=== PATIENT | male | born 1960 | race American Indian/Alaskan Native ===

== ENCOUNTER 2020-06-28 03:10 | Emergency (ER) | payer SELFPAY ==
--- NOTE | 2020-06-28 03:25 | EDM.PDOC ---
ED HPI GENERAL MEDICAL PROBLEM - General Stated Complaint: INTOXICATED; SOB Time Seen by Provider: 06/28/20 03:20 Source of Information: Reports: Patient History Limitations: Reports: Intoxication - History of Present Illness INITIAL COMMENTS - FREE TEXT/NARRATIVE: 59-year-old male who earlier tonight was at a bar attending awake of a recently friend with multiple other people and apparently he drank alcohol heavily. Patient remembers is that he doesn't really remember much after this and cannot relate the history to me but apparently he went or was taken home where he lives by himself and apparently fell on his floor and was unable to get up. The friend that was with him that brought him home apparently was unable to help him get up and he also noted that there was some bleeding coming from a scrape on his right knee and the patient was per altered and his level responsiveness and therefore the friend called 911 and EMS arrived and brought patient here for evaluation. The patient tells me that he has no pain. And ask again low pain was he rated it as a 0/10. He cannot give me an accounting of what happened tonight. He does admit to drinking alcohol heavily. No reported vomiting. He does have some wheezing that he has a history of asthma and he has been using his inhaler. He reports that it any better or worse than normal for him. It is really unknown if he has any other injuries from this fall. The only evidence of trauma that I can see is on his anterior right knee where he has an abrasion that had some bleeding but it has been controlled with direct pressure and has a dressing placed over it. There are no other associated signs or symptoms. There are no other modifying factors. Onset: Today Duration: Constant Location: Reports: Upper Extremity, Right (Right knee) Quality: Reports: Other (Patient denies any pain.) Improves with: Reports: None Worsens with: Reports: None Context: Reports: Other (As above.) Associated Symptoms: Reports: Confusion, Other (Wheezing. Intoxicated.) Treatments EXECUTIVE VP: Reports: Other (see below) (Nothing.) - Related Data Allergies Allergy/AdvReac Type Severity Reaction Status Date / Time fall and spring seasonal Allergy Asthma Uncoded 06/28/20 03:55 Home Meds: Home Meds Azithromycin [Zithromax] 1 dose PO DAILY 5 Days #6 tab 06/28/20 [Rx] Fluticasone Propionate [Flonase] 2 spray JESSICA BID #1 bottle 06/28/20 [Rx] Past Medical History HEENT History: Reports: Impaired Vision (Worse colossus) Respiratory History: Reports: Asthma Other Gastrointestinal History: umbilical hernia - protruding Psychiatric History: Reports: Addiction (Alcohol abuse) Endocrine/Metabolic History: Reports: Obesity/BMI 30+ - Past Surgical History HEENT Surgical History: Reports: Cataract Surgery Social & Family History - Tobacco Use Tobacco Use Status *Q: Unknown Ever Used Tobacco (Nonsmoker.) - Alcohol Use Alcohol Use History: Yes Alcohol Use Frequency: Binges (Heavy drinking tonight.) - Living Situation & Occupation Living situation: Reports: Alone ED ROS GENERAL - Review of Systems Review Of Systems: See Below Constitutional: Reports: No Symptoms HEENT: Reports: No Symptoms Respiratory: Reports: Wheezing, Cough Cardiovascular: Reports: No Symptoms Endocrine: Reports: No Symptoms GI/Abdominal: Denies: Abdominal Pain, Nausea, Vomiting Musculoskeletal: Reports: No Symptoms Skin: Reports: Wound (Abrasion on right anterior knee) Neurological: Reports: Confusion Hematologic/Lymphatic: Reports: No Symptoms Immunologic: Reports: Other (Unknown when his last tetanus immunization was.) - Physical Exam Exam: See Below Exam Limited By: No Limitations General Appearance: Alert, Obese (Morbidly obese) Eye Exam: Bilateral Eye: EOMI (Lateral gaze nystagmus at less than 45), Normal Inspection Ears: Normal External Exam, Hearing Grossly Normal Nose: Normal Inspection, Normal Mucosa, No Blood Throat/Mouth: Normal Inspection, Normal Lips, Normal Voice, No Airway Compromise, Other (Strong odor of alcohol on his breath) Head Exam: Atraumatic, Normocephalic Neck: Normal Inspection, Non-Tender Respiratory/Chest: No Respiratory Distress, Lungs Clear, Normal Breath Sounds (Some noises at end expiration that appear to be upper airway noises.), No Accessory Muscle Use, Chest Non-Tender, Other (Good air movement) Cardiovascular: Normal Peripheral Pulses, Regular Rate, Rhythm, No Murmur GI/Abdominal: Normal Bowel Sounds, Soft, Non-Tender, Other (Protuberant) Neuro Exam (Abbreviated): Alert, CN II-XII Intact, No Motor/Sensory Deficits, Slow to Respond Extremities: Normal Range of Motion, No Pedal Edema, Normal Capillary Refill Skin Exam: Warm, Dry, Normal Color, Wound/Incision (Abrasion on his right anterior knee) Course - Vital Signs Last Recorded V/S: Last Vital Signs Temp 36.4 C 06/28/20 03:10 Pulse 84 06/28/20 05:00 Resp 16 06/28/20 05:00 BP 136/75 06/28/20 05:00 Pulse Ox 96 06/28/20 05:00 - Orders/Labs/Meds Orders: Active Orders 24 hr Category Date Time Status Cervical Spine wo Cont [CT] Stat Exams 06/28/20 03:37 Taken Chest 1V Frontal [CR] Stat Exams 06/28/20 04:04 Taken Head wo Cont [CT] Stat Exams 06/28/20 03:37 Taken Knee 1V or 2V Rt [CR] Stat Exams 06/28/20 03:37 Taken Labs: Laboratory Tests 06/28/20 06/28/20 06/28/20 Range/Units 03:50 03:50 03:55 WBC 9.7 (4.5-12.0) X10-3/uL RBC 4.68 (4.30-5.75) x10(6)uL Hgb 13.1 L (13.5-17.8) g/dL Hct 40.0 (30.0-51.3) % MCV 85.4 (80-96) fL MCH 28.0 (27.7-33.6) pg MCHC 32.8 (32.2-35.4) g/dL RDW 13.3 (11.5-15.5) % Plt Count 287 (125-369) X10(3)uL MPV 7.7 (7.4-10.4) fL Neut % (Auto) 72.0 (46-82) % Lymph % (Auto) 21.3 (13-37) % Divide % (Auto) 3.0 L (4-12) % Eos % (Auto) 3 (1.0-5.0) % Baso % (Auto) 1 (0-2) % Neut # (Auto) 7.0 (1.6-8.3) # Lymph # (Auto) 2.1 (0.6-5.0) # Divide # (Auto) 0.3 (0.0-1.3) # Eos # (Auto) 0.3 (0.0-0.8) # Baso # (Auto) 0.0 (0.0-0.2) # Sodium (135-145) mmol/L Potassium (3.5-5.3) mmol/L Chloride (100-110) mmol/L Carbon Dioxide (21-32) mmol/L BUN (7-18) mg/dL Creatinine (0.70-1.30) mg/dL Est Cr Clr Drug Dosing Estimated GFR (MDRD) (>60) BUN/Creatinine Ratio (9-20) Glucose (80-116) mg/dL Calcium (8.6-10.2) mg/dL Total Bilirubin (0.1-1.3) mg/dL AST (5-25) IU/L ALT (12-36) U/L Alkaline Phosphatase (56-112) IU/L Total Protein (6.0-8.0) g/dL Albumin (3.5-5.2) g/dL Globulin g/dL Albumin/Globulin Ratio Urine Color Yellow (YELLOW) Urine Appearance Clear (CLEAR) Urine pH 5.0 (5.0-6.5) Ur Specific Rembert 1.015 (1.010-1.025) Urine Protein Negative (NEGATIVE) mg/dL Urine Glucose (UA) Normal (NORMAL) mg/dL Urine Ketones Negative (NEGATIVE) mg/dL Urine Occult Blood Negative (NEGATIVE) Urine Nitrite Negative (NEGATIVE) Urine Bilirubin Negative (NEGATIVE) Urine Urobilinogen Normal (NEGATIVE) mg/dL Ur Leukocyte Esterase Negative (NEGATIVE) Urine RBC 0-5 (0-5) Urine WBC 0-5 (0-5) Ur Squamous Epith Cells Occasional (NS,R,O) Urine Bacteria Few H (NS) Urine Opiates Screen Negative (NEGATIVE) Ur Oxycodone Screen Negative (NEGATIVE) Ur Propoxyphene Screen Negative (NEGATIVE) Ur Barbituates Screen Negative (NEGATIVE) Ur Tricyclics Screen Negative (NEGATIVE) Ur Phencyclidine Scrn Negative (NEGATIVE) Ur Amphetamine Screen Negative (NEGATIVE) Urine MDMA Screen Negative (NEGATIVE) U Benzodiazepines Scrn Negative (NEGATIVE) U Cocaine Metab Screen Negative (NEGATIVE) U Marijuana (THC) Screen Negative (NEGATIVE) Ethyl Alcohol (<0.03) % 06/28/20 06/28/20 Range/Units 03:55 03:55 WBC (4.5-12.0) X10-3/uL RBC (4.30-5.75) x10(6)uL Hgb (13.5-17.8) g/dL Hct (30.0-51.3) % MCV (80-96) fL MCH (27.7-33.6) pg MCHC (32.2-35.4) g/dL RDW (11.5-15.5) % Plt Count (125-369) X10(3)uL MPV (7.4-10.4) fL Neut % (Auto) (46-82) % Lymph % (Auto) (13-37) % Divide % (Auto) (4-12) % Eos % (Auto) (1.0-5.0) % Baso % (Auto) (0-2) % Neut # (Auto) (1.6-8.3) # Lymph # (Auto) (0.6-5.0) # Divide # (Auto) (0.0-1.3) # Eos # (Auto) (0.0-0.8) # Baso # (Auto) (0.0-0.2) # Sodium 133 L (135-145) mmol/L Potassium 4.0 (3.5-5.3) mmol/L Chloride 96 L (100-110) mmol/L Carbon Dioxide 24 (21-32) mmol/L BUN 14 (7-18) mg/dL Creatinine 0.9 (0.70-1.30) mg/dL Est Cr Clr Drug Dosing TNP Estimated GFR (MDRD) > 60 (>60) BUN/Creatinine Ratio 15.6 (9-20) Glucose 103 (80-116) mg/dL Calcium 8.4 L (8.6-10.2) mg/dL Total Bilirubin 0.6 (0.1-1.3) mg/dL AST 29 H (5-25) IU/L ALT 34 (12-36) U/L Alkaline Phosphatase 99 (56-112) IU/L Total Protein 7.7 (6.0-8.0) g/dL Albumin 3.3 L (3.5-5.2) g/dL Globulin 4.4 g/dL Albumin/Globulin Ratio 0.8 Urine Color (YELLOW) Urine Appearance (CLEAR) Urine pH (5.0-6.5) Ur Specific Rembert (1.010-1.025) Urine Protein (NEGATIVE) mg/dL Urine Glucose (UA) (NORMAL) mg/dL Urine Ketones (NEGATIVE) mg/dL Urine Occult Blood (NEGATIVE) Urine Nitrite (NEGATIVE) Urine Bilirubin (NEGATIVE) Urine Urobilinogen (NEGATIVE) mg/dL Ur Leukocyte Esterase (NEGATIVE) Urine RBC (0-5) Urine WBC (0-5) Ur Squamous Epith Cells (NS,R,O) Urine Bacteria (NS) Urine Opiates Screen (NEGATIVE) Ur Oxycodone Screen (NEGATIVE) Ur Propoxyphene Screen (NEGATIVE) Ur Barbituates Screen (NEGATIVE) Ur Tricyclics Screen (NEGATIVE) Ur Phencyclidine Scrn (NEGATIVE) Ur Amphetamine Screen (NEGATIVE) Urine MDMA Screen (NEGATIVE) U Benzodiazepines Scrn (NEGATIVE) U Cocaine Metab Screen (NEGATIVE) U Marijuana (THC) Screen (NEGATIVE) Ethyl Alcohol 0.30 H* (<0.03) % Meds: Medications Discontinued Medications Generic Name Dose Route Start Last Admin Trade Name Freq PRN Reason Stop Dose Admin Diphtheria/Tetanus/Acell Pertussis 0.5 ml 06/28/20 03:40 06/28/20 03:59 Boostrix IM 06/28/20 03:41 0.5 ml .ONCE ONE Administration - Radiology Interpretation Free Text/Narrative:: CT scan of head showed mild scalp swelling in the right frontal region but no fracture. There is a normal CT appearance of the brain for the patient's age and there is bilateral sphenoid sinusitis and evidence of chronic sinusitis in the other sinuses. This was per the radiologist at [facility] CT scan of the cervical spine showed no sign of fracture or subluxation there was degenerative disc disease at all levels. This was per the radiologist at [facility] Chest x-ray showed no acute disease per the radiologist at [facility]. X-ray of the right knee showed no acute osseous abnormality was a moderate suprapatellar joint effusion and evidence of DJD. This was per the radiologist at [facility] - Re-Assessments/Exams Free Text/Narrative Re-Assessment/Exam: 06/28/20 05:12: Patient has remained vitally stable. He was asleep when I came in to reevaluate him but he awakened easily. His blood tests are reassuringly normal except for a blood alcohol of 300 mg/dL. His x-rays show no acute abnormalities and the CT scans of his head and neck were essentially negative as well except for evidence of sinus disease with possible acute sinusitis. The patient is conversant but he is too intoxicated to walk and we will need to watch him for a longer period of time. Does report he has multiple family members in town and he is quite sure that one of these will be able to help him later when he is appropriate for discharge. Plan will be to continue to watch him and when he is able to ambulate with minimal assistance, he will be able to be discharged. I will be placed the patient on Zithromax for 5 day course as well as placing the patient on Flonase nasal spray. This is to treat his sinusitis. The plan for now will be to continue to observe him he remains vitally neurologically stable. 06/28/20 08:50: Patient is more awake and alert. He is ambulatory without any problems. A family member is coming to pick the patient up now. He appears to be stable and appropriate for discharge at this point. Departure - Departure Time of Disposition: 08:55 Disposition: Home, Self-Care 01 Condition: Good Clinical Impression: Abrasion, right knee, initial encounter, Contusion of right knee, initial encounter Acute alcohol intoxication Qualifiers: Complication of substance-induced condition: uncomplicated Qualified Code(s): F10.920 - Alcohol use, unspecified with intoxication, uncomplicated Fall from standing Qualifiers: Encounter type: initial encounter Qualified Code(s): W19.XXXA - Unspecified fall, initial encounter Head contusion Qualifiers: Encounter type: initial encounter Contusion of head detail: other part of head Qualified Code(s): S00.83XA - Contusion of other part of head, initial encounter Sinusitis, acute Qualifiers: Sinusitis location: pansinusitis Recurrence: not specified as recurrent Qualified Code(s): J01.40 - Acute pansinusitis, unspecified - Discharge Information Prescriptions: Fluticasone Propionate [Flonase] 2 spray JESSICA BID #1 bottle Azithromycin [Zithromax] 1 dose PO DAILY 5 Days #6 tab Instructions: Alcohol Intoxication, [id number], Contusion, [id number], Abrasion, [id number] Referrals: PCP,None [Primary Care Provider] - Forms: ED Department Discharge Additional Instructions: Your blood alcohol was 300 mg/dL. It is greater than 4 times the legal limit. You were heavily intoxicated and that caused due to fall at your home. There was no evidence of any severe injury. The x-rays of your right knee showed evidence of bruising. The x-ray of your chest was normal. In the CT scans of your head and neck and no fractures. You do have evidence of a sinus infection and I am placing you on antibiotics (Zithromax) and a Flonase nasal spray treat this. I strongly advise you to stop drinking alcohol and seek help in doing this. Follow up with your primary doctor. Back to the emergency department for vomiting, trouble breathing or any other concerning sign or symptom. Sepsis Event Note (ED) - Focused Exam Vital Signs: Vital Signs Temp Pulse Resp BP Pulse Ox 06/28/20 05:00 84 16 136/75 96 06/28/20 04:00 88 18 121/52 L 98 06/28/20 03:30 91 16 122/71 96 06/28/20 03:15 94 16 121/61 98 06/28/20 03:10 36.4 C - My Orders Last 24 Hours: My Active Orders 06/28/20 03:37 Cervical Spine wo Cont [CT] Stat Head wo Cont [CT] Stat Knee 1V or 2V Rt [CR] Stat 06/28/20 04:04 Chest 1V Frontal [CR] Stat - Assessment/Plan Last 24 Hours: My Active Orders 06/28/20 03:37 Cervical Spine wo Cont [CT] Stat Head wo Cont [CT] Stat Knee 1V or 2V Rt [CR] Stat 06/28/20 04:04 Chest 1V Frontal [CR] Stat
[2020-06-28] MEDS ORDERED: Diphtheria,Pertussis(Acell),Tetanus Vaccine 0.5 ML Syringe IM ONE (03:40)
[2020-06-28 06:41] VITALS: BP 136/75; PULSE 84
== END 2020-06-28 08:55 | disposition home or self-care (01) ==
LOC: FB.ED 03:10
DX: S00.83XA Contusion of other part of head, initial encounter (principal); S80.01XA Contusion of right knee, initial encounter; F10.120 Alcohol abuse with intoxication, uncomplicated; J01.40 Acute pansinusitis, unspecified; J45.909 Unspecified asthma, uncomplicated; Z23 Encounter for immunization; E66.9 Obesity, unspecified; Z68.41 Body mass index [BMI] 40.0-44.9, adult; Z79.899 Other long term (current) drug therapy; W18.30XA Fall on same level, unspecified, initial encounter
CPT/HCPCS: 36415; 70450; 71045; 72125; 73560-RT; 80053; 80305-QW; 80307; 81001; 82962; 85025; 90471; 90715; 99285-25

== ENCOUNTER 2021-10-14 03:14 | Emergency (ER) | payer SELFPAY ==
[2021-10-14 05:22] VITALS: BP 104/71; PULSE 70
== END 2021-10-14 05:15 | disposition home or self-care (01) ==
LOC: FB.ED 03:14
DX: S00.83XA Contusion of other part of head, initial encounter (principal); F10.129 Alcohol abuse with intoxication, unspecified; E66.9 Obesity, unspecified; Z68.41 Body mass index [BMI] 40.0-44.9, adult; Y90.5 Blood alcohol level of 100-119 mg/100 ml; W19.XXXA Unspecified fall, initial encounter; Y93.01 Activity, walking, marching and hiking; Y92.009 Unspecified place in unspecified non-institutional (private) residence as the place of occurrence of the external cause
CPT/HCPCS: 36415; 70450; 72125; 80048; 80307; 84484; 85025; 99285-25

== ENCOUNTER 2025-08-29 22:48 | Emergency (ER) | payer BC ==
[2025-08-29] MEDS ORDERED: Sodium Chloride 0.9% 10 ML Syringe FLUSH PRN (23:00)
[2025-08-29 23:17] LABS: BASOPHILS ABSOLUTE AUTO 0.1 x10-3/uL (0.0-0.3); BASOPHILS PERCENT AUTO 0.9 % (0.3-3.8); EOSINOPHILS ABSOLUTE AUTO 0.4 x10-3/uL (0.0-0.6); EOSINOPHILS PERCENT AUTO 3.7 % (0.1-6.8); LYMPHOCYTES ABSOLUTE AUTO 3.2 x10-3/uL (0.5-4.5); LYMPHOCYTES PERCENT AUTO 26.9 % (15.8-45.3); MEAN PLATELET VOLUME 7.9 fL (6.7-11.0); MONOCYTES ABSOLUTE AUTO 0.6 x10-3/uL (0.0-1.2); MONOCYTES PERCENT AUTO 5.2 % (5.5-15.2); NEUTROPHILS ABSOLUTE AUTO 7.5 x10-3/uL (1.7-6.9); NEUTROPHILS PERCENT AUTO 63.3 % (40.3-71.8); PLATELET COUNT,PLT 317 x10(3)uL (117-477); RED BLOOD CELL COUNT 4.35 x10(6)uL (3.90-5.90); RED CELL DISTRIBUTION WIDTH 14.8 % (12.4-15.0); WHITE BLOOD CELL COUNT,WBC 11.9 x10-3/uL (3.2-10.1)
[2025-08-29 23:22] LABS: BLOOD UREA NITROGEN,BUN 12 mg/dL (7-18); CARBON DIOXIDE,CO2 24 mmol/L (21-32); CHLORIDE,CL 95 mmol/L (100-110); CREATININE 0.9 mg/dL (0.70-1.30); ESTIMATED GFR 96 mL/min (>60); GLUCOSE RANDOM 118 mg/dL (80-116); POTASSIUM,K 4.4 mmol/L (3.5-5.3); SODIUM,NA 130 mmol/L (135-145)
[2025-08-29 23:30] LABS: LACTIC ACID 1.8 mmol/L (0.4-2.0)
[2025-08-29 23:33] LABS: A/G RATIO 0.8; ALANINE AMINOTRANSFERASE,ALT 18 U/L (12-36); ASPARTATE AMNIOTRANSFERASE,AST 23 IU/L (5-25); BILIRUBIN TOTAL 0.4 mg/dL (0.1-1.3); PROTEIN TOTAL,TP 7.6 g/dL (6.0-8.0)
[2025-08-30 09:23] VITALS: BP 141/85; PULSE 88
== END 2025-08-30 09:32 | disposition home or self-care (01) ==
LOC: FB.ED 22:48
DX: S81.811A Laceration without foreign body, right lower leg, initial encounter (principal); S81.812A Laceration without foreign body, left lower leg, initial encounter; F10.120 Alcohol abuse with intoxication, uncomplicated; J45.909 Unspecified asthma, uncomplicated; E86.0 Dehydration; Z88.8 Allergy status to other drugs, medicaments and biological substances; W18.30XA Fall on same level, unspecified, initial encounter
CPT/HCPCS: 36415; 80053; 80307; 83605; 85025; 96360; 99284; J7030